=== PATIENT | female | born 1945 | race Asian ===

== ENCOUNTER 2020-01-18 22:03 | Emergency (ER) | payer OTHER ==
[2020-01-18 22:16] VITALS: BP 153/87; PULSE 78; TEMP 97.6; BMI 24.4
--- NOTE | 2020-01-18 23:12 | PDOC ---
History of Present Illness - General Chief Complaint: Urinary Problem Stated Complaint: UTI- PAINFUL URINATION Time Seen by Provider: 01/18/20 23:12 History Source: Patient Exam Limitations: No Limitations - History of Present Illness Initial Comments: 01/18/20 23:41 74yF w PMhx frequent UTIs presenting w 2d dysuria, urinary urgency. 01/10 diagnosed w hemorrhagic cystitis in ED, DC home w keflex and Phenazypyridine. 01/16 repeat UA shows no UTI. Denies fever, abd pain, n/v Past History - Medical History Allergies/Adverse Reactions: Allergies Allergy/AdvReac Type Severity Reaction Status Date / Time UNCODED ALLERGY SELECTION Allergy Intermediate Cough Verified 01/18/20 22:08 [Pollen] Home Medications: Ambulatory Orders Cholecalciferol (Vitamin D3) [Vitamin D3] 1,000 unit PO 2 CAPS DAILY capsule 10/04/14 Fexofenadine HCl 180 mg PO DAILY PRN tablet 10/05/16 Cephalexin [Keflex] 750 mg PO TID 5 Days #15 capsule 01/11/20 Phenazopyridine HCl 100 mg PO BID 3 Days #6 tablet 01/11/20 Cephalexin Monohydrate [Keflex -] 500 mg PO Q6H 7 Days #28 capsule 01/19/20 Phenazopyridine HCl 100 mg PO BID 3 Days #6 tablet 01/19/20 Phenazopyridine HCl [Pyridium] 100 mg PO BID #7 tablet 01/19/20 COPD: No HTN: Yes Hypercholesterolemia: Yes - Reproductive History Is Patient Now?: No Therapeutic (s) & number: No - Immunization History Immunization Up to Date: Yes - Psycho-Social/Smoking History Smoking History: Never smoked - Substance Abuse Hx (Audit-C & DAST Scrn) How often the patient has a drink containing alcohol: Never Score: In Men: 4 or > Positive; In Women: 3 or > Positive: 0 Screen Result (Pos requires Nsg. Audit-10AR): Negative Review of Systems - Review of Systems Constitutional: No: Chills, Fever HEENTM: No: Eye Pain, Nose Pain Respiratory: No: Cough, Shortness of Breath Cardiac (ROS): No: Chest Pain, Palpitations ABD/GI: No: Abdominal Distended, Constipated, Diarrhea, Nausea, Vomiting : Yes: Burning, Dysuria. No: Flank Pain Musculoskeletal: No: Back Pain, Joint Pain Integumentary: No: Bruising, Flushing Neurological: No: Headache, Seizure Psychiatric: No: Anxiety, Depression Endocrine: No: Intolerance to Cold, Intolerance to Heat Hematologic/Lymphatic: No: Anemia, Blood Clots *Physical Exam - Vital Signs Last Vital Signs Temp Pulse Resp BP Pulse Ox 97.6 F 78 18 153/87 99 01/18/20 22:05 01/18/20 22:05 01/18/20 22:05 01/18/20 22:05 01/18/20 22:05 - Physical Exam General Appearance: Yes: Nourished, Appropriately Dressed, Mild Distress HEENT: positive: EOMI, MARIO, Normal Voice, Hearing Grossly Normal. negative: Scleral Icterus (R), Scleral Icterus (L) Respiratory/Chest: positive: Lungs Clear, Normal Breath Sounds. negative: Chest Tender, Respiratory Distress Cardiovascular: positive: Regular Rhythm, Regular Rate, S1, S2. negative: Edema, Murmur Gastrointestinal/Abdominal: positive: Normal Bowel Sounds, Flat, Soft. negative: Tender, Organomegaly Musculoskeletal: negative: CVA Tenderness (R), CVA Tenderness (L) Integumentary: positive: Normal Color, Warm Neurologic: positive: Fully Oriented, Alert, Normal Response, Responsive Medical Decision Making - Medical Decision Making 01/19/20 04:33 Has UTI. No sign of urinary retention on US (post-void bladder volume 67mL) DC w PCP f/u, keflex, Phenazypyridine Discharge - Discharge Information Problems reviewed: Yes Clinical Impression/Diagnosis: UTI (urinary tract infection) Qualifiers: Urinary tract infection type: acute cystitis Hematuria presence: with hematuria Qualified Code(s): N30.01 - Acute cystitis with hematuria Condition: Improved Disposition: HOME - Admission No - Additional Discharge Information Prescriptions: Cephalexin Monohydrate [Keflex -] 500 mg PO Q6H 7 Days #28 capsule Phenazopyridine HCl 100 mg PO BID 3 Days #6 tablet - Follow up/Referral Referrals: Enrique Jain MD [Primary Care Provider] - - Patient Discharge Instructions Patient Printed Discharge Instructions: DI for Urinary Tract Infection (UTI) Additional Instructions: You have a urine infection Take the prescribed Keflex and Phenazopyridine as directed Drink lots of water Follow up with your primary care doctor - Post Discharge Activity
[2020-01-18 23:47] LABS: URINE APPEARANCE CLEAR; URINE BILIRUBIN NEGATIVE (NEGATIVE); URINE COLOR YELLOW; URINE GLUCOSE (UA) NEGATIVE (NEGATIVE); URINE KETONE NEGATIVE (NEGATIVE)
[2020-01-18 23:48] LABS: URINE LEUK ESTERASE 3+ (NEGATIVE); URINE NITRITE NEGATIVE (NEGATIVE); URINE PROTEIN TRACE (NEGATIVE); URINE UROBILINOGEN 0.2 mg/dL (0.2-1.0)
--- NOTE | 2020-01-19 00:15 | PDOC ---
Attending Attestation - Resident Resident Name: Tomy Leavitt - ED Attending Attestation I have performed the following: I have examined & evaluated the patient, The case was reviewed & discussed with the resident, I agree w/resident's findings & plan - HPI HPI: 01/19/20 20:08 74yF w PMhx frequent UTIs presenting w 2d dysuria, urinary urgency. 01/10 diagnosed w hemorrhagic cystitis in ED, DC home w keflex and Phenazypyridine. 01/16 repeat UA shows no UTI. Denies fever, abd pain, n/v - Physicial Exam PE: 01/19/20 20:08 Agree with resident exam. - Medical Decision Making 01/19/20 20:09 Pt will be treated with keflex as well as pyridium for discomfort. Pt will follow with her PMD Discharge - Discharge Information Problems reviewed: Yes Clinical Impression/Diagnosis: UTI (urinary tract infection) Qualifiers: Urinary tract infection type: acute cystitis Hematuria presence: with hematuria Qualified Code(s): N30.01 - Acute cystitis with hematuria Condition: Improved Disposition: HOME - Additional Discharge Information Prescriptions: Cephalexin Monohydrate [Keflex -] 500 mg PO Q6H 7 Days #28 capsule Phenazopyridine HCl 100 mg PO BID 3 Days #6 tablet - Follow up/Referral Referrals: Enrique Jain MD [Primary Care Provider] - - Patient Discharge Instructions Patient Printed Discharge Instructions: DI for Urinary Tract Infection (UTI) Additional Instructions: You have a urine infection Take the prescribed Keflex and Phenazopyridine as directed Drink lots of water Follow up with your primary care doctor - Post Discharge Activity
[2020-01-19] MEDS ORDERED: CEPHALEXIN MONOHYDRATE 500 MG CAPSULE (UD) PO ONE (00:21)
[2020-01-19] MEDS ORDERED: CEPHALEXIN MONOHYDRATE 500 MG CAPSULE (UD) ONE (00:25)
[2020-01-19 01:40] LABS: EPI CELLS FEW /uL (0-25.1); URINE RBC 25-35 /uL (0-23.9); URINE WBC 50-60 /uL (0-25.8)
== END 2020-01-19 00:30 | disposition home or self-care (01) ==
LOC: JER 22:03
DX: N30.01 Acute cystitis with hematuria (principal)
CPT/HCPCS: 81003; 87086; 87186; 99284-25

== ENCOUNTER 2020-06-25 06:28 | Day surgery (SDC) | payer OTHER ==
[2020-06-19 16:49] VITALS: BMI 27.2
[2020-06-25] MEDS: TROPICAMIDE 1% OPHTH SOLN 15 ML BOTTLE ONE ×3 (07:15→07:25)
[2020-06-25] MEDS: CIPROFLOXACIN 0.3% EYE DROPS 5 ML BOTTLE ONE ×3 (07:15→07:25)
[2020-06-25] MEDS: CYCLOPENTOLATE 2% OPHTH SOLN 2 ML BOTTLE ONE ×3 (07:15→07:25)
[2020-06-25] MEDS: PHENYLEPHRINE 2.5% OPHTH SOLN 15 ML BOTTLE ONE ×3 (07:15→07:25)
[2020-06-25] MEDS ORDERED: MIDAZOLAM HCL 2 MG/2 ML SINGLE DOSE VIAL ONE (08:01)
[2020-06-25] MEDS ORDERED: NEO/POLYMYX B SULF/DEXAMETH OPHTHALMIC 5ML BOTTLE ONE (12:14)
[2020-06-25] MEDS ORDERED: BSS (NA/CA/MG/K) BALANCED SALT SOLUTION OPHTH SOLN 15 ML BOTTLE ONE (12:14)
[2020-06-25] MEDS ORDERED: CARBACHOL 0.01% INTRA-OCULAR 1.5 ML VIAL ONE (12:14)
[2020-06-25] MEDS ORDERED: TETRACAINE 0.5% OPHTH SOLN 2 ML BOTTLE ONE (12:14)
[2020-06-25] MEDS ORDERED: LIDOCAINE 1% P/F 10 MG/ML VIAL ONE (12:14)
[2020-06-25 16:34] VITALS: TEMP 98.3
[2020-06-25 17:06] VITALS: BP 134/75; PULSE 85
== END 2020-06-25 09:20 | disposition home or self-care (01) ==
LOC: FASU 06:28 → MERGE 06:28 → FASU 09:20
PROVIDERS: ATTEND Ophthalmology
PROC: 08RK3JZ Replacement of Left Lens with Synthetic Substitute, Percutaneous Approach (ICD-10-PCS; principal; 2020-06-25 08:14)
DX: H26.8 Other specified cataract (principal)

== ENCOUNTER 2020-07-09 07:04 | Day surgery (SDC) | payer OTHER ==
[2020-07-04 12:35] VITALS: BMI 25.4
[2020-07-09] MEDS ORDERED: CIPROFLOXACIN 0.3% EYE DROPS 5 ML BOTTLE OD ONE ×3 (07:50→08:00)
[2020-07-09] MEDS ORDERED: CYCLOPENTOLATE 2% OPHTH SOLN 2 ML BOTTLE OD ONE ×3 (07:50→08:00)
[2020-07-09] MEDS ORDERED: TROPICAMIDE 1% OPHTH SOLN 15 ML BOTTLE OD ONE ×3 (07:50→08:00)
[2020-07-09] MEDS ORDERED: PHENYLEPHRINE 2.5% OPHTH SOLN 15 ML BOTTLE OD ONE ×3 (07:50→08:00)
[2020-07-09] MEDS ORDERED: CIPROFLOXACIN HCL 0.3% OPHTH 2.5ML BOTTLE ONE (07:51)
[2020-07-09] MEDS ORDERED: CYCLOPENTOLATE 2% OPHTH SOLN 2 ML BOTTLE ONE (07:51)
[2020-07-09] MEDS ORDERED: TROPICAMIDE 1% OPHTH SOLN 15 ML BOTTLE ONE (07:51)
[2020-07-09] MEDS ORDERED: MIDAZOLAM HCL 2 MG/2 ML SINGLE DOSE VIAL ONE (09:19)
[2020-07-09] MEDS ORDERED: BSS (NA/CA/MG/K) BALANCED SALT SOLUTION OPHTH SOLN 15 ML BOTTLE ONE (09:23)
[2020-07-09] MEDS ORDERED: CARBACHOL 0.01% INTRA-OCULAR 1.5 ML VIAL ONE (09:23)
[2020-07-09] MEDS ORDERED: TETRACAINE 0.5% OPHTH SOLN 2 ML BOTTLE ONE (09:23)
[2020-07-09] MEDS ORDERED: NEO/POLYMYX B SULF/DEXAMETH OPHTHALMIC 5ML BOTTLE ONE (09:23)
[2020-07-09] MEDS ORDERED: LIDOCAINE 1% P/F 10 MG/ML VIAL ONE (09:23)
[2020-07-09 10:26] VITALS: TEMP 98
[2020-07-09 10:42] VITALS: BP 137/82; PULSE 78
== END 2020-07-09 11:05 | disposition home or self-care (01) ==
LOC: FASU 07:04
PROVIDERS: ATTEND Ophthalmology
PROC: 08RJ3JZ Replacement of Right Lens with Synthetic Substitute, Percutaneous Approach (ICD-10-PCS; principal; 2020-07-09 09:42)
DX: H26.8 Other specified cataract (principal)

== ENCOUNTER 2022-06-28 17:47 | Observation (INO) | payer OTHER ==
[2022-06-28 17:58] VITALS: BMI 25.0
[2022-06-28] MEDS ORDERED: SODIUM CHLORIDE 0.9% 500 ML INFUS.BAG IV ONE (20:44)
[2022-06-28 21:09] LABS: BASO % 0.4 % (0-2.0); EOS % 0.5 % (0-4.5); HEMATOCRIT 37.4 % (32.4-45.2); HEMOGLOBIN 12.5 GM/dL (10.7-15.3); MCH 33.1 pg (25.7-33.7); MCHC 33.4 g/dl (32.0-36.0); MEAN CELL VOLUME 99.1 fl (80-96); MEAN PLT VOLUME 6.8 fl (7.5-11.1); MONO % 6.1 % (3.8-10.2); PLATELET COUNT 320 10^3/uL (134-434); RBC 3.77 M/mm3 (3.60-5.2); RDW 12.4 % (11.6-15.6); WHITE BLOOD COUNT 7.8 K/mm3 (4.0-10.0)
[2022-06-28 21:22] LABS: CALCIUM 9.4 mg/dL (8.5-10.1)
[2022-06-28 21:23] LABS: ALBUMIN 4.1 g/dl (3.4-5.0); MAGNESIUM 2.3 mg/dL (1.8-2.4)
[2022-06-28 21:27] LABS: BILIRUBIN,TOTAL 0.5 mg/dL (0.2-1); TOT PROT 7.9 g/dl (6.4-8.2)
[2022-06-28 21:30] LABS: EPI CELLS 5 /uL (0-25.1); HYALINE CASTS 0 /uL (0-3.1); PH,URINE 7.5 (5.0-8.0); URINE APPEARANCE CLOUDY; URINE BACTERIA 25 /uL (0-1359); URINE BILIRUBIN NEGATIVE (NEGATIVE); URINE COLOR YELLOW; URINE GLUCOSE (UA) NEGATIVE (NEGATIVE); URINE KETONE NEGATIVE (NEGATIVE); URINE LEUK ESTERASE 1+ (NEGATIVE); URINE NITRITE NEGATIVE (NEGATIVE); URINE PROTEIN NEGATIVE (NEGATIVE); URINE RBC 16 /uL (0-23.9); URINE UROBILINOGEN 0.2 mg/dL (0.2-1.0); URINE WBC 16 /uL (0-25.8)
[2022-06-29] MEDS ORDERED: HYDROCHLOROTHIAZIDE 12.5 MG CAPSULE (FP) PO SCH (07:00)
[2022-06-29 09:57] LABS: BASO % 0.6 % (0-2.0); EOS % 3.8 % (0-4.5); HEMATOCRIT 36.1 % (32.4-45.2); HEMOGLOBIN 12.7 GM/dL (10.7-15.3); LYMPH % 32.8 % (8-40); MCH 34.8 pg (25.7-33.7); MCHC 35.3 g/dl (32.0-36.0); MEAN CELL VOLUME 98.8 fl (80-96); MEAN PLT VOLUME 6.7 fl (7.5-11.1); MONO % 5.6 % (3.8-10.2); NEUT % 57.2 % (42.8-82.8); PLATELET COUNT 311 10^3/uL (134-434); RBC 3.65 M/mm3 (3.60-5.2); RDW 12.2 % (11.6-15.6); WHITE BLOOD COUNT 5.1 K/mm3 (4.0-10.0)
[2022-06-29 09:58] VITALS: RESP 18
[2022-06-29] MEDS ORDERED: ENOXAPARIN NA (PORCINE) 40 MG/0.4 ML DISP.SYRIN SQ SCH (10:00)
[2022-06-29 10:28] LABS: CALCIUM 8.9 mg/dL (8.5-10.1)
[2022-06-29 10:29] LABS: ALBUMIN 3.9 g/dl (3.4-5.0); MAGNESIUM 2.4 mg/dL (1.8-2.4)
[2022-06-29 10:32] LABS: CREATININE 0.9 mg/dL (0.55-1.3)
[2022-06-29 10:33] LABS: BILIRUBIN,TOTAL 0.8 mg/dL (0.2-1); TOT PROT 7.5 g/dl (6.4-8.2)
[2022-06-29] MEDS ORDERED: ENOXAPARIN NA (PORCINE) 40 MG/0.4 ML DISP.SYRIN SQ ONE (11:51)
[2022-06-29] MEDS ORDERED: HYDROCHLOROTHIAZIDE 25 MG TABLET (FP) ONE (11:51)
[2022-06-29 11:55] VITALS: BP 150/84; PULSE 65; TEMP 97.5
[2022-06-29] MEDS ORDERED: LOSARTAN POTASSIUM 50 MG TABLET PO SCH (22:00)
[2022-06-29] MEDS ORDERED: ATORVASTATIN CA 10 MG TABLET (FP) PO SCH (22:00)
== END 2022-06-29 14:10 | disposition home or self-care (01) ==
LOC: JER 17:47 → UNDOADMOB 21:56 → INTOOBSV 21:56 → JERBED 21:56
PROVIDERS: ADMIT Internal Medicine; ATTEND Internal Medicine
PROC: 3E023GC Introduction of Other Therapeutic Substance into Muscle, Percutaneous Approach (ICD-10-PCS; principal; 2022-06-29)
PROC: 3E0337Z Introduction of Electrolytic and Water Balance Substance into Peripheral Vein, Percutaneous Approach (ICD-10-PCS; 2022-06-29)
DX: R55 Syncope and collapse (principal); I10 Essential (primary) hypertension; E78.5 Hyperlipidemia, unspecified; Z29.8 Encounter for other specified prophylactic measures; J30.1 Allergic rhinitis due to pollen; R20.0 Anesthesia of skin
CPT/HCPCS: 0241U-QW; 36415; 70450-TC; 71046-TC-FY; 80053; 80061; 81003; 83735; 84100; 84443; 84484; 85025; 87086; 93005; 93010; 93880-TC; 96372; 99291; 99292; G0378

== ENCOUNTER 2023-12-05 12:14 | Emergency (ER) | payer OTHER ==
[2023-12-05 12:19] VITALS: BP 139/73; PULSE 80; RESP 16; TEMP 98.5; BMI 24.2
[2023-12-05] MEDS: LIDOCAINE 5% TOPICAL PATCH TP ONE (13:15)
[2023-12-05] MEDS ORDERED: IBUPROFEN 400 MG TABLET (FP) PO ONE (13:15)
[2023-12-05] MEDS: IBUPROFEN 400 MG TABLET (FP) PO ONE (13:15)
[2023-12-05] MEDS ORDERED: LIDOCAINE 5% TOPICAL PATCH ONE (13:16)
[2023-12-05] MEDS ORDERED: LIDOCAINE PATCH REMOVAL MC SCH (22:00)
== END 2023-12-05 15:10 | disposition home or self-care (01) ==
LOC: FER 12:14
DX: M25.552 Pain in left hip (principal)
CPT/HCPCS: 72170-TC-FY; 73502-TC-LT-FY; 99284-25

== ENCOUNTER 2024-01-05 02:30 | Inpatient (IN) | payer OTHER ==
[2024-01-05 02:44] VITALS: RESP 18
[2024-01-05 03:32] LABS: EPI CELLS 0 /uL (0-25.1); HYALINE CASTS 0 /uL (0-3.1); PH,URINE 7.5 (5.0-8.0); URINE APPEARANCE CLEAR; URINE BILIRUBIN NEGATIVE (NEGATIVE); URINE COLOR DK YELLOW; URINE GLUCOSE (UA) NEGATIVE (NEGATIVE); URINE KETONE NEGATIVE (NEGATIVE); URINE LEUK ESTERASE 2+ (NEGATIVE); URINE NITRITE POSITIVE (NEGATIVE); URINE PROTEIN 1+ (NEGATIVE); URINE RBC 2548 /uL (0-23.9); URINE WBC 651 /uL (0-25.8)
[2024-01-05 03:52] LABS: BASO % 0.1 % (0-2.0); EOS % 0.5 % (0-4.5); HEMATOCRIT 34.1 % (32.4-45.2); HEMOGLOBIN 11.9 GM/dL (10.7-15.3); LYMPH % 11.9 % (8-40); MCH 34.3 pg (25.7-33.7); MCHC 34.8 g/dl (32.0-36.0); MEAN CELL VOLUME 98.7 fl (80-96); MEAN PLT VOLUME 6.7 fl (7.5-11.1); MONO % 5.7 % (3.8-10.2); NEUT % 81.8 % (42.8-82.8); PLATELET COUNT 312 10^3/uL (134-434); RBC 3.46 M/mm3 (3.60-5.2); RDW 12.3 % (11.6-15.6); WHITE BLOOD COUNT 11.9 K/mm3 (4.0-10.0)
[2024-01-05 04:17] LABS: POTASSIUM 3.3 mmol/L (3.5-5.1)
[2024-01-05 04:19] LABS: ALBUMIN 3.8 g/dl (3.4-5.0); BLOOD UREA NITROGEN 9.6 mg/dL (7-18); CALCIUM 8.4 mg/dL (8.5-10.1)
[2024-01-05 04:22] LABS: CREATININE 0.7 mg/dL (0.55-1.3)
[2024-01-05 04:23] LABS: BILIRUBIN,TOTAL 0.9 mg/dL (0.2-1); TOT PROT 7.2 g/dl (6.4-8.2)
[2024-01-05] MEDS ORDERED: CEFTRIAXONE 1 GM/50 ML BAG ONE (04:36)
[2024-01-05] MEDS ORDERED: ACETAMINOPHEN INJECTION 100 ML IVPB ONE (04:43)
[2024-01-05] MEDS: KCL 10 MEQ IVPB 10 MEQ/100 ML INFUS.BAG IVPB SCH (04:45)
[2024-01-05] MEDS ORDERED: ONDANSETRON *ODT* 4 MG TABLET ONE (04:47)
[2024-01-05] MEDS ORDERED: ONDANSETRON 4 MG/2 ML VIAL ONE (04:48)
[2024-01-05] MEDS: ACETAMINOPHEN 1000 MG/100 ML BAG IVPB ONE (04:54)
[2024-01-05] MEDS: ONDANSETRON 4 MG/2 ML VIAL IVPUSH ONE (04:54)
[2024-01-05] MEDS: SODIUM CHLORIDE 0.9% 500 ML INFUS.BAG IV ONE (04:54)
[2024-01-05 06:28] LABS: BASO % 0.5 % (0-2.0); EOS % 0.2 % (0-4.5); HEMATOCRIT 30.2 % (32.4-45.2); HEMOGLOBIN 10.7 GM/dL (10.7-15.3); LYMPH % 10.9 % (8-40); MCH 35.1 pg (25.7-33.7); MCHC 35.6 g/dl (32.0-36.0); MEAN CELL VOLUME 98.5 fl (80-96); MEAN PLT VOLUME 6.2 fl (7.5-11.1); MONO % 5.6 % (3.8-10.2); NEUT % 82.8 % (42.8-82.8); PLATELET COUNT 261 10^3/uL (134-434); RBC 3.06 M/mm3 (3.60-5.2); RDW 12.3 % (11.6-15.6); WHITE BLOOD COUNT 10.9 K/mm3 (4.0-10.0)
[2024-01-05 06:48] LABS: POTASSIUM 3.6 mmol/L (3.5-5.1)
[2024-01-05 06:52] LABS: CALCIUM 7.5 mg/dL (8.5-10.1)
[2024-01-05 06:53] LABS: ALBUMIN 3.4 g/dl (3.4-5.0); BLOOD UREA NITROGEN 8.5 mg/dL (7-18); MAGNESIUM 1.5 mg/dL (1.8-2.4)
[2024-01-05 06:55] LABS: CREATININE 0.6 mg/dL (0.55-1.3)
[2024-01-05 06:56] LABS: PHOSPHOROUS 2.7 mg/dL (2.5-4.9)
[2024-01-05 06:57] LABS: BILIRUBIN,TOTAL 0.7 mg/dL (0.2-1); TOT PROT 6.4 g/dl (6.4-8.2)
[2024-01-05] MEDS ORDERED: KCL 10 MEQ IVPB 10 MEQ/100 ML INFUS.BAG IVPB ONE ×2 (08:04→09:13)
[2024-01-05] MEDS ORDERED: ENOXAPARIN NA (PORCINE) 40 MG/0.4 ML DISP.SYRIN SQ SCH (10:00)
[2024-01-05] MEDS: amLODIPine BESYLATE 2.5 MG TABLET (FP) PO SCH (10:59)
[2024-01-05] MEDS: MAGNESIUM 2GM/50ML STERILE WATER IVPB IVPB ONE (11:31)
[2024-01-05 12:08] VITALS: BMI 52.7
[2024-01-05] MEDS: SODIUM CHLORIDE 1 GM TABLET PO SCH (18:25)
[2024-01-05] MEDS: LOSARTAN POTASSIUM 50 MG TABLET PO SCH (21:15)
[2024-01-06] MEDS: CEFTRIAXONE 1 GM in DEXTROSE 5%-WATER - 50 ML IVPB SCH (04:52)
[2024-01-06 10:12] LABS: BASO % 0.3 % (0-2.0); EOS % 2.3 % (0-4.5); HEMATOCRIT 34.5 % (32.4-45.2); HEMOGLOBIN 11.8 GM/dL (10.7-15.3); LYMPH % 9.3 % (8-40); MCH 34.3 pg (25.7-33.7); MCHC 34.1 g/dl (32.0-36.0); MEAN CELL VOLUME 100.5 fl (80-96); MEAN PLT VOLUME 6.5 fl (7.5-11.1); MONO % 7.4 % (3.8-10.2); NEUT % 80.7 % (42.8-82.8); PLATELET COUNT 287 10^3/uL (134-434); RBC 3.44 M/mm3 (3.60-5.2); RDW 12.5 % (11.6-15.6); WHITE BLOOD COUNT 6.4 K/mm3 (4.0-10.0)
[2024-01-06 10:32] LABS: POTASSIUM 3.9 mmol/L (3.5-5.1)
[2024-01-06 10:33] LABS: CALCIUM 8.5 mg/dL (8.5-10.1)
[2024-01-06 10:34] LABS: BLOOD UREA NITROGEN 12.6 mg/dL (7-18); MAGNESIUM 2.5 mg/dL (1.8-2.4)
[2024-01-06 10:36] LABS: CREATININE 0.9 mg/dL (0.55-1.3)
[2024-01-07 08:39] LABS: BASO % 0.6 % (0-2.0); EOS % 6.7 % (0-4.5); HEMATOCRIT 34.7 % (32.4-45.2); LYMPH % 32.8 % (8-40); MCH 34.4 pg (25.7-33.7); MCHC 34.5 g/dl (32.0-36.0); MEAN CELL VOLUME 99.7 fl (80-96); MEAN PLT VOLUME 6.2 fl (7.5-11.1); MONO % 16.9 % (3.8-10.2); PLATELET COUNT 286 10^3/uL (134-434); RBC 3.48 M/mm3 (3.60-5.2); RDW 12.9 % (11.6-15.6); WHITE BLOOD COUNT 4.2 K/mm3 (4.0-10.0)
[2024-01-07 08:51] LABS: ALBUMIN 3.5 g/dl (3.4-5.0); BLOOD UREA NITROGEN 12.5 mg/dL (7-18); CALCIUM 8.5 mg/dL (8.5-10.1)
[2024-01-07 08:55] LABS: BILIRUBIN,TOTAL 0.4 mg/dL (0.2-1); CREATININE 0.7 mg/dL (0.55-1.3)
[2024-01-07] MEDS: SODIUM CHLORIDE 1 GM TABLET PO SCH (09:28)
[2024-01-07] MEDS: POLYETHYLENE GLYCOL (HEALTHYLAX) 3350 17 GM PACKET PO SCH (15:14)
[2024-01-08 00:41] LABS: PH,URINE 6.5 (5.0-8.0); URINE APPEARANCE CLEAR; URINE BILIRUBIN NEGATIVE (NEGATIVE); URINE COLOR YELLOW; URINE GLUCOSE (UA) NEGATIVE (NEGATIVE); URINE KETONE NEGATIVE (NEGATIVE); URINE LEUK ESTERASE NEGATIVE (NEGATIVE); URINE NITRITE NEGATIVE (NEGATIVE); URINE PROTEIN NEGATIVE (NEGATIVE); URINE UROBILINOGEN 0.2 mg/dL (0.2-1.0)
[2024-01-08 09:59] LABS: HEMATOCRIT 35.4 % (32.4-45.2); HEMOGLOBIN 12.4 GM/dL (10.7-15.3); MCH 34.7 pg (25.7-33.7); MEAN CELL VOLUME 99.1 fl (80-96); MEAN PLT VOLUME 6.3 fl (7.5-11.1); PLATELET COUNT 330 10^3/uL (134-434); RBC 3.57 M/mm3 (3.60-5.2); RDW 12.7 % (11.6-15.6); WHITE BLOOD COUNT 4.2 K/mm3 (4.0-10.0)
[2024-01-08 10:31] LABS: POTASSIUM 3.9 mmol/L (3.5-5.1)
[2024-01-08 10:37] LABS: CALCIUM 8.7 mg/dL (8.5-10.1)
[2024-01-08 10:38] LABS: ALBUMIN 3.6 g/dl (3.4-5.0); BLOOD UREA NITROGEN 11.9 mg/dL (7-18)
[2024-01-08 10:41] LABS: CREATININE 0.9 mg/dL (0.55-1.3)
[2024-01-08 10:42] LABS: BILIRUBIN,TOTAL 0.5 mg/dL (0.2-1)
[2024-01-08] MEDS: SODIUM CHLORIDE 1 GM TABLET PO SCH (10:43)
[2024-01-08 16:39] VITALS: BP 138/72; PULSE 88; TEMP 97.8
== END 2024-01-08 16:55 | disposition home or self-care (01) | DRG 690 ==
LOC: JER 02:30 → JERBED 04:35 → J6S 09:30
PROVIDERS: ADMIT Internal Medicine; ATTEND Internal Medicine
DX: N39.0 Urinary tract infection, site not specified (principal); E87.1 Hypo-osmolality and hyponatremia; B96.20 Unspecified Escherichia coli [E. coli] as the cause of diseases classified elsewhere; I10 Essential (primary) hypertension; E78.5 Hyperlipidemia, unspecified; E83.42 Hypomagnesemia; E87.6 Hypokalemia; K59.00 Constipation, unspecified; M54.32 Sciatica, left side; M51.36 Other intervertebral disc degeneration, lumbar region
CPT/HCPCS: 0241U-QW; 36415; 70450-TC; 71045-TC-FY; 71250-TC; 72131-TC; 72192-TC; 76775-TC; 76856-TC; 80048; 80053; 81003; 83735; 83930; 83935; 84100; 84300; 84484; 85025; 85027; 87086; 87186; 93005; 93010; 97116-GP; 97162-GP; 99285-25; J0131